=== PATIENT | male | born 1970 | race Caucasian/White ===

== ENCOUNTER → 2017-09-15 | Outpatient (CLI) | payer OTHER | END | disposition home or self-care (01) | LOC: RAD 12:39 | PROVIDERS: ATTEND Nurse Practitioner Family | DX: M48.061 Spinal stenosis, lumbar region without neurogenic claudication (principal); M51.27 Other intervertebral disc displacement, lumbosacral region | CPT/HCPCS: 70250; 72148 ==

== ENCOUNTER → 2018-11-11 | Outpatient (CLI) | payer OTHER | END | disposition home or self-care (01) | LOC: RAD 16:40 | PROVIDERS: ATTEND Nurse Practitioner Family | DX: M51.27 Other intervertebral disc displacement, lumbosacral region (principal) | CPT/HCPCS: 72148 ==

== ENCOUNTER → 2020-06-12 | Outpatient (CLI) | payer OTHER | END | disposition home or self-care (01) | LOC: RAD 06:49 | PROVIDERS: ATTEND Nurse Practitioner Family | DX: M75.121 Complete rotator cuff tear or rupture of right shoulder, not specified as traumatic (principal); M94.211 Chondromalacia, right shoulder; M25.711 Osteophyte, right shoulder; M75.51 Bursitis of right shoulder ==